=== PATIENT | male | born 1990 | race Caucasian/White ===

== ENCOUNTER 2016-07-07 11:41 | Emergency (ER) | payer BC ==
[2016-07-07 11:51] VITALS: RESP 16; TEMP 97.9
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
[2016-07-07] MEDS ORDERED: ACETAMINOPHEN 500 MG TAB ONE (13:31)
[2016-07-07 14:02] VITALS: BP 120/78; PULSE 80; O2SAT 94
== END 2016-07-07 14:08 | disposition home or self-care (01) ==
DX: S09.90XA Unspecified injury of head, initial encounter (principal); Y04.8XXA Assault by other bodily force, initial encounter; Y92.410 Unspecified street and highway as the place of occurrence of the external cause